=== PATIENT | female | born 1965 | race Caucasian/White ===

== ENCOUNTER 2016-07-19 21:34 | Emergency (ER) | payer OTHER ==
[~2016-07-19] VITALS: Wt 61.0 kg
[~2016-07-19 21:34] MED LIST: HYDR-906 PO; ONDA4TAB8 PO
--- NOTE | 2016-07-20 00:08 | ERD ---
ER Documentation Chief Complaint Date/Time DATE: 07/20/16 TIME: 00:07 Chief Complaint upper abd pain x 4 hours. hx of gallstones HPI 50-year-old female presents to emergency department for complaints of right upper quadrant abdominal pain started 4 hours prior to arrival. Patient described the pain sharp pain, 6/10 scale, accompanied with nausea but denies any vomiting. Patient denies any diarrhea or constipation. Patient denies any flank pain. Patient has history of gallbladder stones. Patient took Cascade for pain with mild relief. Patient ran out of the Cascade. Patient denies any fever or chills. ROS All systems reviewed and are negative except as per history of present illness. Medications Home Meds Active Scripts Ondansetron (Ondansetron Odt) 4 Mg Tab.rapdis, 4 MG PO Q8 Y for NAUSEA AND/OR VOMITING, #30 TAB Prov:SINAN BERGERON NURSE COMPANION 07/20/16 Hydrocodone/Acetaminophen (Cascade 5-325 Tablet) 1 Each Tablet, 1 TAB PO Q6H Y for PAIN, #20 TAB Prov:SINAN BERGERON NURSE COMPANION 07/20/16 Ondansetron Hcl* (Zofran*) 4 Mg Tablet, 4 MG PO Q6H for NAUSEA AND/OR VOMITING, #30 TAB Prov:ADRYAN VAZQUEZ PA-C 03/25/16 Hydrocodone/Acetaminophen (Cascade 5-325 Tablet) 1 Each Tablet, 1 TAB PO Q6H Y for PAIN, #5 TAB Prov:ADRYAN VAZQUEZ PA-C 03/25/16 Allergies Allergies: Coded Allergies: No Known Allergy (Unverified , 07/19/16) PMhx/Soc Medical and Surgical Hx: pt denies Medical Hx, pt denies Surgical Hx History of Surgery: No Anesthesia Reaction: No Hx Neurological Disorder: No Hx Respiratory Disorders: No Hx Cardiac Disorders: No Hx Psychiatric Problems: No Hx Miscellaneous Medical Probl: No Hx Alcohol Use: Yes ("socially") Hx Substance Use: No Hx Tobacco Use: No Smoking Status: Never smoker FmHx Family History: No coronary disease, No diabetes, No other Physical Exam Vitals Vital Signs Date Time Temp Pulse Resp B/P Pulse Ox O2 Delivery O2 Flow Rate FiO2 07/19/16 21:36 97.4 80 20 178/95 99 Physical Exam GENERAL: The patient is well developed and appropriate for usual state of health, in no apparent distress. CHEST: Clear to auscultation bilaterally. There are no rales, wheezes or rhonchi. HEART: Regular rate and rhythm. No murmurs, clicks, rubs or gallops. No S3 or S4. ABDOMEN: Soft, nontender and nondistended. Good bowel sounds. No rebound or guarding. No gross peritonitis. No gross organomegaly or masses. No Perez sign or McBurney point tenderness. BACK: No midline or flank tenderness. EXTREMITIES: Equal pulses bilaterally. There is no peripheral clubbing, cyanosis or edema. No focal swelling or erythema. Full range of motion. Grossly neurovascularly intact. NEURO: Alert and oriented. Cranial nerves 2-12 intact. Motor strength in all 4 extremities with 5/5 strength. Sensation grossly intact. Normal speech and gait. SKIN: There is no apparent rash or petechia. The skin is warm and dry. HEMATOLOGIC AND LYMPHATIC: There is no evidence of excessive bruising or lymphedema. No gross cervical, axillary, or inguinal lymphadenopathy. Result Diagram: 07/20/16 0025 07/20/1624 Results 24 hrs Laboratory Tests Test 07/20/16 00:18 07/20/16 00:25 Urine Bilirubin NEGATIVE Urine Clarity SLIGHTLY CLOUDY Urine Color LT. YELLOW Urine Glucose NEGATIVE% Urine Hemoglobin NEGATIVE Urine Ketones NEGATIVE Urine Leukocyte Esterase NEGATIVE Urine Nitrite NEGATIVE Urine Specific [place] >=1.030 Urine Total Protein NEGATIVE Urine Urobilinogen 0.2 E.U./dL Urine pH 6.0 Alanine Aminotransferase (ALT/SGPT) 27IU/L Albumin 4.0g/dl Albumin/Globulin Ratio 1.33 Alkaline Phosphatase 94IU/L Anion Gap 17 Aspartate Amino Transf (AST/SGOT) 20IU/L Basophils # 0.010^3/ul Basophils % 0.3% Blood Urea Nitrogen 9mg/dl Calcium Level 9.4mg/dl Carbon Dioxide Level 29mmol/L Chloride Level 101mmol/L Creatinine 0.59mg/dl Direct Bilirubin 0.00mg/dl Eosinophils # 0.110^3/ul Eosinophils % 1.0% Globulin 3.00g/dl Glucose Level 135mg/dl Hematocrit 32.0% Hemoglobin 9.7g/dl Indirect Bilirubin 0.1mg/dl Lipase 53U/L Lymphocytes # 2.210^3/ul Lymphocytes % 23.4% Mean Corpuscular Hemoglobin 23.8pg Mean Corpuscular Hemoglobin Concent 30.3g/dl Mean Corpuscular Volume 78.4fl Mean Platelet Volume 8.7fl Monocytes # 0.510^3/ul Monocytes % 5.1% Neutrophils # 6.410^3/ul Neutrophils % 69.8% Nucleated Red Blood Cells # 0.010^3/ul Nucleated Red Blood Cells % 0.0/100WBC Platelet Count 37465^3/UL Potassium Level 3.9mmol/L Red Blood Count 4.0810^6/ul Red Cell Distribution Width 13.4% Sodium Level 143mmol/L Total Bilirubin 0.1mg/dl Total Protein 7.0g/dl White Blood Count 9.210^3/ul Current Medications Medications (Trade) Dose Ordered Sig/Murtaza Route PRN Reason Start Time Stop Time Status Last Admin Dose Admin Acetaminophen/ Hydrocodone Bitart (Cascade (5/325)) 1 tab ONCE ONCE PO 07/20/16 02:00 07/20/16 02:01 UNV Ondansetron HCl (Zofran Odt) 4 mg ONCE STAT ODT 07/20/16 01:53 07/20/16 01:54 UNV Patient was given medication for pain here in emergency department, after treatment, patient verbalized feeling much better. Patient's pain is improved. PROCEDURE: US gallbladder . CLINICAL INDICATION: Abdominal pain. TECHNIQUE: Multiple real-time images were acquired of the patient's abdomen utilizing a high resolution transducer. COMPARISON: Ultrasound abdomen dated 03/25/2016. FINDINGS: Single gallstone in the gallbladder neck, and this is similar in appearance to the prior examination. There is gallbladder sludge. Gallbladder sludge is new over interval since ultrasound dated 03/25/2016. There is no pericholecystic fluid or gallbladder wall thickening. Gallbladder wall measures 3 mm. The common bile duct measures 6 mm in maximal dimension. No free fluid is identified. Right kidney measures 102 mm, and there is no evident renal mass, hydronephrosis retained calculus. Liver measures 165 mm and is unremarkable. Pancreas is unremarkable. IMPRESSION: 1. Gallstone and gallbladder sludge. 2. No evident pericholecystic fluid or gallbladder wall thickening. 3. Otherwise, no acute process in the right upper quadrant. RPTAT: [facility] Physician J Carlos Date Time Electronically viewed and signed by Physician J Carlos on 07/20/2016 01:47 RS/ CC: SINAN BERGERON NP Procedures/MDM Medical Decision Making: Patient's symptoms of right upper quadrant abdominal pain consistent with biliary colic. Low suspicion for acute cholecystitis, choledocholithiasis, patient liver function tests is normal , lipase is normal, no leukocytosis, no bandemia noted. Patient does not have any fever. There is low suspicion for abdominal emergencies at this time. Patients abdominal exam is normal at this time. Patients radiology exam does not show any abdominal emergencies at this time. There is low suspicion for appendicitis, cholecystitis , abdominal aortic aneurysms or peritonitis at this time. There is low suspicion for sepsis. Patient appears well and is hemodynamically stable. Disposition: Home. Condition: Stable Prescription Cascade, Zofran Instructions: Patient is advised to take medications as prescribed. Patient is advised to rest, increase fluid intake and do brat diet, low-fat diet for next 1 -2 days and progress as tolerated. Patient is advised that if symptoms are worse , severe abdominal pain, uncontrolled vomiting, high fever, severe flank pain, worst signs and symptoms, to return to the emergency department immediately. Otherwise, patient can follow up with primary care doctor in 5-7 days. see general surgeon for possible removal of the gallbladder. Departure Diagnosis: Primary Impression: Biliary colic Condition: Stable Patient Instructions: Biliary Colic With Gallstone (Confirmed) Additional Instructions: Patient is advised to take medications as prescribed. Patient is advised to rest , increase fluid intake and do brat diet, low-fat diet for next 1-2 days and progress as tolerated. Patient is advised that if symptoms are worse, severe abdominal pain, uncontrolled vomiting, high fever, severe flank pain, worst signs and symptoms, to return to the emergency department immediately. Otherwise, patient can follow up with primary care doctor in 5-7 days. see general surgeon for possible removal of the gallbladder. SINAN BERGERON NP Jul 20, 2016 00:08
[2016-07-20 00:42] LABS: ADD SCAN DIFF NO
[2016-07-20 00:46] LABS: BASOPHILS % 0.3 % (0.0-2.0); EOSINOPHILS # 0.1 10^3/ul (0.0-0.5); HEMOGLOBIN 9.7 g/dl (12.0-16.0); LYMPHOCYTES # 2.2 10^3/ul (0.8-2.9); LYMPHOCYTES % 23.4 % (15.0-51.0); MEAN CORPUSCULAR HEMOGLOBIN 23.8 pg (29.0-33.0); MEAN CORPUSCULAR HGB CONC 30.3 g/dl (32.0-37.0); MEAN CORPUSCULAR VOLUME 78.4 fl (82.0-101.0); MEAN PLATELET VOLUME 8.7 fl (7.4-10.4); MONOCYTE # 0.5 10^3/ul (0.3-0.9); MONOCYTES % 5.1 % (0.0-11.0); NEUTROPHIL # 6.4 10^3/ul (1.6-7.5); NEUTROPHILS % 69.8 % (39.0-77.0); PLATELET COUNT 543 10^3/UL (140-415); RED BLOOD COUNT 4.08 10^6/ul (4.20-5.40); RED CELL DISTRIBUTION WIDTH 13.4 % (11.5-14.5); WHITE BLOOD COUNT 9.2 10^3/ul (4.8-10.8)
[2016-07-20 00:54] LABS: ADD UMIC NO; URINE BILIRUBIN (Dip) NEGATIVE (NEGATIVE); URINE BLOOD (Dip) NEGATIVE (NEGATIVE); URINE COLOR LT. YELLOW (YELLOW); URINE GLUCOSE (Dip) NEGATIVE (NEGATIVE); URINE KETONES (Dip) NEGATIVE (NEGATIVE); URINE LEUKOCYTE ESTERASE (Dip) NEGATIVE (NEGATIVE); URINE NITRITE (Dip) NEGATIVE (NEGATIVE); URINE TOTAL PROTEIN (Dip) NEGATIVE (NEGATIVE); URINE UROBILINOGEN (Dip) 0.2 E.U./dL (0.1-1.0)
[2016-07-20 01:04] LABS: POTASSIUM 3.9 mmol/L (3.5-5.1)
[2016-07-20 01:06] LABS: BILIRUBIN,INDIRECT 0.1 mg/dl (0-1.1); BILIRUBIN,TOTAL 0.1 mg/dl (0.2-1.3); CREATININE 0.59 mg/dl (0.44-1.00)
[2016-07-20 01:07] LABS: ALBUMIN/GLOBULIN RATIO 1.33; CALCIUM 9.4 mg/dl (8.4-10.2)
--- NOTE | 2016-07-20 01:47 | RADRPT ---
PROCEDURE: US gallbladder . CLINICAL INDICATION: Abdominal pain. TECHNIQUE: Multiple real-time images were acquired of the patient's abdomen utilizing a high resol ution transducer. COMPARISON: Ultrasound abdomen dated 03/25/2016. FINDINGS: Single gallstone in the gallbladder neck, and this is similar in appearance to the prior examination . There is gallbladder sludge. Gallbladder sludge is new over interval since ultrasound dated 03/25. There is no pericholecystic fluid or gallbladder wall thickening. Gallbladder wall measures 3 mm. The common bile duct measures 6 mm in maximal dimension. No free fluid is identified. Right kidney measures 102 mm, and there is no evident renal mass, hydro nephrosis retained calculus. Liver measures 165 mm and is unremarkable. Pancreas is unremarkable. IMPRESSION: 1. Gallstone and gallbladder sludge. 2. No evident pericholecystic fluid or gallbladder wall thickening. 3. Otherwise, no acute process in the right upper quadrant. RPTAT: [facility] Physician J Carlos Date Time Electronically viewed and signed by Physician J Carlos on 07/20/2016 01:47 RS/
[2016-07-20] MEDS ORDERED: ONDANSETRON (ODT) 4 MG TAB ODT STA (01:53)
[2016-07-20] MEDS ORDERED: HYDR-906 PO (01:55)
[2016-07-20] MEDS ORDERED: ONDA4TAB14 PO (01:55)
[2016-07-20] MEDS ORDERED: HYDROCODONE/APAP (5/325) TAB PO ONE (02:00)
[2016-07-20 02:09] VITALS: BP 169/97; PULSE 84; RESP 16; TEMP 97.8
== END 2016-07-20 02:10 | disposition home or self-care (01) ==
LOC: FTE 21:34
DX: K80.50 Calculus of bile duct without cholangitis or cholecystitis without obstruction (principal); R11.0 Nausea
CPT/HCPCS: 36415; 76705; 80053; 81003; 83690; 85025; Z7502; Z7610